=== PATIENT | male | born 1980 | race Caucasian/White ===

== ENCOUNTER 2020-06-24 18:00 | Outpatient (CLI) | payer BC | END 2020-06-24 18:01 | disposition home or self-care (01) | LOC: SLEEPLAB 18:00 | PROVIDERS: ATTEND Family Medicine | DX: G47.33 Obstructive sleep apnea (adult) (pediatric) (principal); G47.10 Hypersomnia, unspecified; G47.9 Sleep disorder, unspecified; R53.83 Other fatigue; R40.0 Somnolence; R06.83 Snoring; F51.9 Sleep disorder not due to a substance or known physiological condition, unspecified; G47.00 Insomnia, unspecified | CPT/HCPCS: 95806 ==